=== PATIENT | female | born 1985 | race Caucasian/White ===

== ENCOUNTER 2017-01-21 00:40 | Inpatient (IN) | payer OTHER ==
[2017-01-21] MEDS ORDERED: OXYTOCIN/RINGERS LACTATE 1,000 ML IV PRN (01:04)
[2017-01-21] MEDS ORDERED: LR 1,000 ML IV PRN (01:04)
[2017-01-21] MEDS ORDERED: TERBUTALINE SULFATE 1 MG/ML VIAL IV PRN (01:04)
[2017-01-21] MEDS ORDERED: LIDOCAINE 1% 30 ML SDV ONE (01:46)
[2017-01-21] MEDS ORDERED: AMMONIA AROMATIC 1 EACH AMP IH ONE (01:46)
[2017-01-21] MEDS ORDERED: TERBUTALINE SULFATE 1 MG/ML VIAL ONE (01:47)
[2017-01-21] MEDS ORDERED: MISOPROSTOL 200 MCG TAB ONE (01:47)
[2017-01-21] MEDS ORDERED: OXYTOCIN 10 UNIT/ML VIAL ONE (01:47)
[2017-01-21 01:50] LABS: % IMMATURE GRANULYOCYTES 2.1 % (0.0-1.1); ABSOLUTE IMMATURE GRANULOCYTES 0.21 10^3/uL (0.00-0.10); ADD DIFF? NO; ADD MORPH? NO; ADD SCAN? NO; ATYPICAL LYMPHOCYTE FLAG 0 (0-99); FRAGMENT RBC FLAG 0 (0-99); HEMATOCRIT 39.3 % (38.0-47.0); HEMOGLOBIN 13.2 g/dL (12.6-16.3); LEFT SHIFT FLG 10 (0-99); LIPEMIA HEMOLYSIS FLAG 80 (0-99); MEAN CELL HEMOGLOBIN 31.8 pg (27.9-34.1); MEAN CELL HEMOGLOBIN CONCENTR. 33.6 g/dL (32.4-36.7); MEAN CELL VOLUME 94.7 fL (81.5-99.8); MEAN PLATELET VOLUME 11.5 fL (8.7-11.7); PLATELET CLUMPS FLAG 0 (0-99); PLATELET COUNT 195 10^3/uL (150-400); RED BLOOD CELL COUNT 4.15 10^6/uL (4.18-5.33); RED CELL DISTRIBUTION WIDTH 12.7 % (11.5-15.2)
--- NOTE | 2017-01-21 03:24 | GHP ---
DATE OF ADMISSION: 01/21/2017 ADMISSION DIAGNOSIS: Intrauterine at 38 and 3/7 weeks gestation in spontaneous labor and spontaneous rupture of membranes. HISTORY OF PRESENT ILLNESS: The patient is a 31-year-old, 3, para 1-0-1-1, with a last mens trual period of 04/27/2016 an EDC of 02/01/2017 which was confirmed by a 9-week ultrasound. The bhavin acosta has had good care at [facility] since registration 9 weeks gestation and has had an uncomplicated course. On the evening of January 20 she began having irregular con tractions which were increasing in intensity and she had spontaneous rupture of membranes for clear fluid. Her contractions increased in intensity. When she presented to Labor and Delivery, she was grossly ruptured for clear fluid. Her cervix was 5 cm, 80%, with a bulging forebag and baby cephali c. The patient is doing well with her contractions now and coping and declines an epidural. PAST OBSTETRICAL HISTORY: In March of 2013 she had a viable male, 9 pounds 4 ounces, vaginal delivery . Vacuum assisted without complication. In April of 2015 she had an ectopic which was ryder ated with methotrexate and she recovered well. This is her 3rd . GYNECOLOGIC HISTORY: The patient has no significant past gynecological history or gynecological pro blems other than her ectopic . She does have a history of an ovarian cyst. PAST MEDICAL HISTORY: She has no past medical problems, chronic medical issues. PAST SURGICAL HISTORY: She has had 2 torn ACL repairs and right ankle reconstruction and left ankle scope. She had an ovarian cyst drained with Interventional Radiology in 2005. No other procedures . ALLERGIES: She has no known drug allergies. MEDICATIONS: vitamins, DHA and iron daily. She was on Prometrium in the 1st trimester of this . LABORATORY DATA: She is O positive. Antibody negative. RPR nonreactive. Rubella immune. Hepatit is negative. HIV negative. Pap normal. Gonorrhea and chlamydia normal. One-hour GTT 112. Hemato crit 33.8. GBS was negative. SOCIAL HISTORY: She is . She lives with her , Raj, and her son. She is a [employer] teacher. She denies tobacco, alcohol, and drug use. FAMILY HISTORY: Her father has hypothyroidism. Maternal grandmother of myocardial infarction. Paternal grandfather had lung cancer. OBJECTIVE: Today she is afebrile. Vital signs stable. heart tones are 130s, moderate variab ility, category 1. Contractions are approximately every 5-6 minutes. Cervical exam now currently i s 6-7 cm, 80%, -2. She had a bulging forebag which was ruptured and fluid was still clear. ASSESSMENT/PLAN: A 31-year-old, 3, para 1-0-1-1, at 38 and 3/7 weeks gestation with spontan eous rupture of membranes and spontaneous labor. status is reassuring. Patient desires expec tant labor management. She will have pain management as desired. /[id number]/MODL
--- NOTE | 2017-01-21 03:25 | OBPROC ---
- Labor and Delivery Onset of Contractions Date: 01/20/17 Onset of Contractions Time: 18:00 Onset of Contractions Type: Spontaneous Rupture of Membranes Date: 01/20/17 Rupture of Membranes Time: 23:00 Rupture of Membranes Type: Spontaneous Amniotic Fluid Color: Clear Dilation Complete Time: 02:50 Delivery Type: Spontaneous Placenta Delivery Date: 01/21/17 Placenta Delivery Time: 03:09 Episiotomy/Laceration: 1st Degree, Perineal Repair: 2-0, Vicryl EBL: 250 Complications: None - Medications Labor Augmentation/Induction Meds Used: None Anesthesia: Local (Specify) (1% lidocaine) - Info A Delivery Date: 01/21/17 Delivery Time: 03:05 Sex of Infant: Female Score (1 Min): 8 Score (5 Min): 9
[2017-01-21] MEDS ORDERED: SIMETHICONE 80 MG TAB CHEW PO PRN (03:26)
[2017-01-21] MEDS ORDERED: HYDROCORTISONE 0.5% CREAM TP PRN (03:26)
[2017-01-21] MEDS ORDERED: HYDROCODONE/APAP 5/325 TAB PO PRN (03:26)
[2017-01-21] MEDS ORDERED: ACETAMINOPHEN 325 MG TAB PO PRN (03:26)
[2017-01-21] MEDS: IBUPROFEN 600 MG TAB PO PRN ×4 (04:08→23:23)
--- NOTE | 2017-01-21 10:14 | SOAPPROG ---
SOAP Progress Note Assessment/Plan: Assessment: PPD 1/2 s/p Plan: Routine care 01/21/17 10:06 Subjective: Pt doing well. Hasn't slept since. Working on BF and will see . Had good success with BF with first. Mod cramps and taking ibu. urinating fine. Bld is moderate without clots. Objective: Vital Signs Temp Pulse Resp BP Pulse Ox 36.6 C 72 18 116/66 96 01/21/17 07:38 01/21/17 07:38 01/21/17 07:38 01/21/17 07:38 01/21/17 07:38 Laboratory Results 01/21/17 01:22 01/20/17 01/21/17 01/22/17 05:59 05:59 05:59 Output Total 250 Balance -250 Physical Exam - Physical Exam General Appearance: WD/WN Abdomen: non-tender, soft, other (FF at umb -1) Pelvic Exam: vaginal bleeding (normal lochia) Extremities: non-tender, pedal edema (minimal) Neuro/Psych: normal mood/affect ICD10 Worksheet Patient Problems: Problems Problem Status Onset Spontaneous vaginal delivery Acute
[2017-01-21] MEDS: DOCUSATE SODIUM 100 MG CAP PO PRN (11:17)
[2017-01-22] MEDS: IBUPROFEN 600 MG TAB PO PRN ×2 (07:30→12:29)
--- NOTE | 2017-01-22 07:36 | OBPROG ---
OBG Progress Note Assessment/Plan: Assessment: s/p PPD # 1 - pt is stable Plan: Continue routine pp care Possible d/c home today Instructions reviewed with pt No Rx given Cont PNV Pelvic rest RTC in 4 and 6 weeks for pp visit 01/22/17 07:33 Subjective: Pt seen and examined. Doing well with no complaints. Minimal cramping, moderate lochia. without difficulty. May want to go home today if feeling up to it. Objective: 01/21/17 01:22 Patient ABO/Rh O POSITIVE 01/21/17 01:22 Temp Pulse Resp BP Pulse Ox 36.4 C 86 16 115/62 95 01/21/17 20:10 01/21/17 20:10 01/21/17 20:10 01/21/17 20:10 01/21/17 20:10 Uterine Position/Fundal Height: Umbilicus -2 Uterine Tone: Firm - Physical Exam General Appearance: WD/WN, alert, no apparent distress Respiratory: lungs clear, normal breath sounds Cardiac/Chest: regular rate, rhythm Abdomen: normal bowel sounds, non-tender, soft, flatus (+) Genitourinary: laceration (intact), lochia (moderate) Extremities: non-tender, normal inspection Neuro/Psych: alert, normal mood/affect, oriented x 3 ICD10 Worksheet Patient Problems: Problems Problem Status Onset Spontaneous vaginal delivery Acute
[2017-01-22] MEDS ORDERED: EPSOM SALT 454 GM TP ONE (10:52)
[2017-01-22 10:53] VITALS: RESP 18; TEMP 97.9; O2SAT 96
[2017-01-22] MEDS: DOCUSATE SODIUM 100 MG CAP PO PRN (12:29)
[2017-01-22 12:42] VITALS: BP 128/78; PULSE 78
== END 2017-01-22 15:15 | disposition home or self-care (01) | DRG 775 ==
LOC: OBSVTOIN 00:40 → FLD 00:40 → FOB 05:04
PROVIDERS: ADMIT Obstetrics & Gynecology; ATTEND Obstetrics & Gynecology
PROC: 10E0XZZ Delivery of Products of Conception, External Approach (ICD-10-PCS; principal; 2017-01-21)
PROC: 0HQ9XZZ Repair Perineum Skin, External Approach (ICD-10-PCS; principal; 2017-01-21)
PROC: 10907ZC Drainage of Amniotic Fluid, Therapeutic from Products of Conception, Via Natural or Artificial Opening (ICD-10-PCS; principal; 2017-01-21)
DX: O70.0 First degree perineal laceration during delivery (principal); Z37.0 Single live birth; Z3A.38 38 weeks gestation of pregnancy
CPT/HCPCS: J2590; J3105